=== PATIENT | male | born 1945 | race Caucasian/White ===

== ENCOUNTER → 2018-01-12 14:48 | Outpatient (CLI) | payer MEDICARE, OTHER, SELFPAY | PROVIDERS: Visit Provider Urology | DX: R97.20 Elevated prostate specific antigen [PSA] (principal) | CPT/HCPCS: 84153 ==

== ENCOUNTER → 2018-05-09 10:19 | Outpatient (CLI) | payer MEDICARE, OTHER, SELFPAY ==
[2018-05-09 11:21] LABS: Cholesterol 177 mg/dL (140-199); HDL Cholesterol 95 mg/dL (40-60); LDL Cholesterol Calculated 68 mg/dL (<100); Triglycerides 71 mg/dL (35-150)
[2018-05-09 11:54] LABS: Prostate Specific Antigen Scrn 3.93 ng/mL (0.1-4.0)
[2018-05-09 11:58] LABS: Thyroid Stimulating Hormone 1.99 uIU/mL (0.47-4.68)
== END ==
PROVIDERS: Family Provider Family Medicine; PCP Family Medicine; Visit Provider Family Medicine
DX: E03.9 Hypothyroidism, unspecified (principal); Z13.220 Encounter for screening for lipoid disorders; R97.20 Elevated prostate specific antigen [PSA]
CPT/HCPCS: 36415; 80061; 84443; G0103

== ENCOUNTER → 2019-03-20 13:32 | Outpatient (CLI) | payer MEDICARE, OTHER, SELFPAY ==
[2019-03-20 14:56] LABS: Free T3, Triiodothyronine Free 3.52 pg/mL (2.77-5.27); Free T4, Direct Thyroxine 1.27 ng/dL (0.78-2.19)
[2019-03-20 15:10] LABS: Thyroid Stimulating Hormone 3.22 uIU/mL (0.47-4.68)
[2019-03-20 15:11] LABS: Prostate Specific Antigen Scrn 3.29 ng/mL (0.1-4.0)
[2019-03-24 13:36] LABS: Thyroid Peroxidase Antibodies 16 IU/mL (< 9)
[2019-03-24 15:28] LABS: Triiodothyronine T3 Reverse 21 ng/dL (8-25)
== END ==
PROVIDERS: PCP Family Medicine; Visit Provider Family Medicine
DX: E03.9 Hypothyroidism, unspecified (principal); Z12.5 Encounter for screening for malignant neoplasm of prostate
CPT/HCPCS: 36415; 84439; 84443; 84481; 84482; 86376; G0103

== ENCOUNTER 2019-04-18 10:53 | Day surgery (SDC) | payer MEDICARE, OTHER, SELFPAY ==
[2019-04-18 11:10] VITALS: BP 124/72; PULSE 60; RESP 16; TEMP 36.4; O2SAT 97; BMI 24.8
[2019-04-18] MEDS: CATARACT EYE COMPOUND (10 DROPS/SYRINGE) 3 DROPS EYE-OP (11:39)
[2019-04-18] MEDS: PROPARACAINE 0.5% OPHTH SOL 2 DROPS EYE-OP (11:39)
--- NOTE | 2019-04-18 11:57 | PM.PREOP ---
Pre-operative Note Interval Note History & Physical reviewed/Exam performed by Physician: No Changes to H&P: No
--- NOTE | 2019-04-18 11:57 | PM.OP.1 ---
Operative Date/Time/Diagnoses Pre-op diagnosis: Nuclear cataract right eye Procedure & Clinicians Procedure: Cataract Surgery Same procedure as scheduled: Yes Surgeon: Victor Manuel Roa Anesthesia Type: MAC +/- and Sedation Operative Notes Procedure in detail: Patient brought to the operating suite. Tetracaine drops placed in the right eye. Marking instrument was used to bean the vertical and horizontal meridians. Patient was prepped and draped in sterile manner. Wire lid speculum was placed in the eye. Marking instrument was used to bean the 115 degree meridian. Betadine drops were placed on the eye. This was irrigated. Lidocaine jelly was placed on the eye. A paracentesis port was created with a side-port blade. 0.1 mL 1% preservative free lidocaine was injected into the anterior chamber. The anterior chamber was deepened with viscoelastic. 2.6 mm keratome was used to create a temporal clear corneal incision. Cystotome and Utrata forceps were used to create continuous tear capsulorrhexis. Balanced salt solution was used to hydro dissect the nucleus. The phacoemulsification handpiece was inserted and the nucleus was removed using the stop and chop technique. The irrigation aspiration handpiece was inserted and the remaining cortex was removed. Anterior chamber was deepened with viscoelastic. An Louis [id number] intraocular lens with a power of 22.5 was injected into the capsular bag. Irrigation aspiration handpiece was inserted and the remaining viscoelastic was removed. The lens was rotated to the 115 degree meridian. Incision was hydrated with balanced salt solution and found to be leak free with pressure with Weck-Marilia sponges. 0.1 mL Vigamox injected anterior chamber. 0.3 mL Kenalog 10 mg was injected subconjunctivally. Lid speculum was removed. The patient left the operating room in excellent condition. Complications: none Post-operative Condition: stable Disposition: same day surgery
[2019-04-18] MEDS: TRIAMCINOLONE 50 MG/5 ML VIAL INJ (12:14)
[2019-04-18] MEDS: MOXIFLOXACIN INJ 5 MG/ML VIAL EYE-OP (12:14)
[2019-04-18] MEDS: PHENYLEPHRINE/LIDOCAINE VIAL (OR) 0.2 ML EYE-OP (12:14)
[2019-04-18] MEDS: LIDOCAINE JELLY 2% 5 ML 1 APPLIC TOP (12:15)
[2019-04-18] MEDS: CHONDROIDTIN/SOD HYALURONATE 1.05 ML SYRINGE INTRAOCULA (12:15)
[2019-04-18] MEDS: TETRACAINE 0.5% OPHTH DROPS 4 ML 2 DROPS EYE-OP (12:15)
[2019-04-18] MEDS: BALANCED SALT IRRIG SOLN NO.2 500 ML, EPINEPHrine 1 MG IRR (12:15)
[2019-04-18 12:30] VITALS: BP 123/63; PULSE 57; RESP 15; TEMP 36.3; O2SAT 96
== END 2019-04-18 12:49 | disposition home or self-care (01) ==
PROVIDERS: PCP Family Medicine; Visit Provider Ophthalmology
PROC: (CPT 66984; principal; 2019-04-18 12:45)
DX: H25.11 Age-related nuclear cataract, right eye (principal)
CPT/HCPCS: 66984; J0171; J2250; J3010; J3301; V2787

== ENCOUNTER 2019-05-16 07:35 | Day surgery (SDC) | payer MEDICARE, OTHER, SELFPAY ==
[2019-05-16 08:14] VITALS: BP 134/75; PULSE 55; RESP 15; TEMP 36.6; O2SAT 98; BMI 25.0
[2019-05-16] MEDS: PROPARACAINE 0.5% OPHTH SOL 2 DROPS EYE-OP (08:14)
[2019-05-16] MEDS: CATARACT EYE COMPOUND (10 DROPS/SYRINGE) 3 DROPS EYE-OP (08:23)
--- NOTE | 2019-05-16 09:00 | PM.OP.1 ---
Operative Date/Time/Diagnoses Pre-op diagnosis: Nuclear Cataract Left eye Post-op diagnosis: same Procedure & Clinicians Surgeon: Victor Manuel Roa Anesthesia Type: MAC +/- and Sedation Operative Notes Procedure in detail: Patient brought to the operating suite. Tetracaine drops placed in the left eye. Marking instrument marked the vertical and horizontal meridians. Patient was prepped and draped in sterile manner. Wire lid speculum was placed in the eye. Marking instrument marked the 75 degree meridian. Betadine drops were placed on the eye. This was irrigated. Lidocaine jelly was placed on the eye. A paracentesis port was created with a side-port blade. 0.1 mL 1% preservative free lidocaine was injected into the anterior chamber. The anterior chamber was deepened with viscoelastic. 2.6 mm keratome was used to create a temporal clear corneal incision. Cystotome and Utrata forceps were used to create continuous tear capsulorrhexis. Balanced salt solution was used to hydro dissect the nucleus. The phacoemulsification handpiece was inserted and the nucleus was removed using the stop and chop technique. The irrigation aspiration handpiece was inserted and the remaining cortex was removed. Anterior chamber was deepened with viscoelastic. An Louis BEL900 intraocular lens with a power of 21.0 was injected into the capsular bag. Irrigation aspiration handpiece was inserted and the remaining viscoelastic was removed. The lens was rotated to the 75 degree meridian. Incision was hydrated with balanced salt solution and found to be leak free with pressure with Weck-Marilia sponges. 0.1 mL Vigamox injected anterior chamber. 0.3 mL Kenalog 10 mg was injected subconjunctivally. Lid speculum was removed. The patient left the operating room in excellent condition. Complications: none Post-operative Condition: stable Disposition: same day surgery
--- NOTE | 2019-05-16 09:03 | PM.PREOP ---
Pre-operative Note Interval Note History & Physical reviewed/Exam performed by Physician: No Changes to H&P: No
[2019-05-16] MEDS: MOXIFLOXACIN INJ 5 MG/ML VIAL EYE-OP (09:11)
[2019-05-16] MEDS: LIDOCAINE JELLY 2% 5 ML 1 APPLIC TOP (09:12)
[2019-05-16] MEDS: PHENYLEPHRINE/LIDOCAINE VIAL (OR) 0.2 ML EYE-OP (09:12)
[2019-05-16] MEDS: TRIAMCINOLONE 50 MG/5 ML VIAL INJ (09:12)
[2019-05-16] MEDS: BALANCED SALT IRRIG SOLN NO.2 500 ML, EPINEPHrine 1 MG IRR (09:12)
[2019-05-16] MEDS: TETRACAINE 0.5% OPHTH DROPS 4 ML 2 DROPS EYE-OP (09:13)
[2019-05-16] MEDS: CHONDROIDTIN/SOD HYALURONATE 1.05 ML SYRINGE INTRAOCULA (09:13)
[2019-05-16 09:30] VITALS: BP 103/66; PULSE 55; RESP 16; TEMP 36.4; O2SAT 94
== END 2019-05-16 09:38 | disposition home or self-care (01) ==
PROVIDERS: PCP Family Medicine; Visit Provider Ophthalmology
PROC: (CPT 66984; principal; 2019-05-16 09:15)
DX: H25.12 Age-related nuclear cataract, left eye (principal)
CPT/HCPCS: 66984; J0171; J2250; J3010; J3301; V2787

== ENCOUNTER → 2019-06-30 08:47 | Outpatient (CLI) | payer MEDICARE, OTHER, SELFPAY ==
[2019-06-30 10:30] LABS: Free T3, Triiodothyronine Free 3.21 pg/mL (2.77-5.27); Free T4, Direct Thyroxine 1.17 ng/dL (0.78-2.19)
[2019-06-30 10:44] LABS: Thyroid Stimulating Hormone 2.02 uIU/mL (0.47-4.68)
[2019-07-04 13:40] LABS: Anti Thyroglobulin Antibody < 1 IU/mL (< 2); Thyroid Peroxidase Antibodies 15 IU/mL (< 9)
[2019-07-05 15:24] LABS: Triiodothyronine T3 Reverse 18 ng/dL (8-25)
== END ==
PROVIDERS: PCP Family Medicine; Visit Provider Family Medicine
DX: E03.9 Hypothyroidism, unspecified (principal)
CPT/HCPCS: 36415; 84439; 84443; 84481; 84482; 86376; 86800

== ENCOUNTER 2019-08-10 06:29 | Day surgery (SDC) | payer MEDICARE, OTHER, SELFPAY ==
[2019-08-10] VITALS (7 sets, daily range): BP systolic 91–139; BP diastolic 53–74; PULSE 50–66; RESP 11–23; TEMP 35.9–36.6; O2SAT 93–96; BMI 24.7
--- NOTE | 2019-08-10 | PATH_ITS ---
[facility] Accession Number: [id number] . 01 Material submitted: . PART A: colon - POLYPS AT 65 CM PART B: colon - POLYP AT 15 CM . 02 Diagnosis: A. Polyps at 65 cm, Biopsies: Portions of tubular adenoma x4. Portions of sessile serrated adenoma x5. . B. Polyp at 15 cm: Serrated lesion, favor hyperplastic polyp. MRV 08/11/2019 1119 Local . 02 Electronically signed: . Radha Harris MD, Pathologist NPI- [id number] . 01 Gross description: . Part A: POLYPS AT 65 CM: Received in formalin are multiple fragment(s) of osei, soft tissue measuring 0.6 x 0.6 x 0.2 cm in aggregate submitted entirely in 1 cassette(s) Part B: POLYP AT 15 CM: Received in formalin is 1 fragment(s) of osei, soft tissue measuring 0.2 x 0.2 x 0.2 cm submitted entirely in 1 cassette(s) /QBJ 08/10/2019 2155 Local . 02 Pathologist provided ICD-10: K63.5, Z12.11 . 02 CPT . 863790, [id number] Performed at: 01 [facility] [address], [place], [place] [id number] MD Adonis Park MD Phone: [phone] Performed at: 02 [facility] [address] [place], [place] [id number] MD Flora Liu MD Phone: [phone]
[2019-08-10] MEDS: LACTATED RINGERS 1,000 ML 42 ML IV (07:30)
[2019-08-10] MEDS: MIDAZOLAM 5 MG/5 ML VIAL IV (07:48)
[2019-08-10] MEDS: fentaNYL 250 MCG/5 ML INJ IV (07:48)
--- NOTE | 2019-08-10 07:53 | PM.HP.1 ---
History of Present Illness History of Present Illness Date Patient Seen: 08/10/19 Time Patient Seen: 07:53 Chief complaint: 17045 Narrative: The patient is a gentleman here for his 1st colonoscopy. Screening Patient History Medical History Acute appendicitis (Inactive) Elevated PSA (Chronic) Family history of colon cancer (Acute) Family history of Lema syndrome (Acute) Mouth ulcers (Inactive) PMR (polymyalgia rheumatica) (Chronic) Postoperative cellulitis of surgical wound (Inactive) Surgical History History of appendectomy (Acute ~02/2017) History of cataract extraction with lens replacement (Acute ~01/2019) History of hernia surgery (Resolved) Family & Social History Family History Sister Eczema Carrier of gene for Lema syndrome Uterine cancer Mother Temporal arteritis Grandmother Colon cancer Social History: household members significant other lives independently Yes caregiver/support person No Tobacco & Substance use: Smoking Status Former smoker alcohol intake former Substance Use Type does not use Meds Home Medications and Allergies Home Medications Medication Instructions Recorded Confirmed Type ibuprofen 200 mg tablet 200 mg PO PRN PRN tab 10/21/18 08/10/19 History diphenhydramine HCl 25 mg capsule 50 mg PO BEDTIME cap 03/20/19 08/10/19 History folic acid 1 mg PO DAILY 05/16/19 08/10/19 History levothyroxine 100 mcg tablet 100 mcg PO QAM #90 tab 07/06/19 08/10/19 Rx naltrexone 4.5 mg PO DAILY 08/10/19 08/10/19 History Allergies Allergy/AdvReac Type Severity Reaction Status Date / Time acetaminophen AdvReac Intermediate DIAPHORETIC, Verified 08/10/19 07:11 LIGHTHEADED oxycodone [OXYCODONE] AdvReac Unknown vomiting Verified 08/10/19 07:11 msg AdvReac Intermediate cramping, Uncoded 07/03/19 09:59 diarrhea sulfites AdvReac Intermediate cramping,di Uncoded 07/03/19 09:59 arrhea Review of Systems Review of Systems ROS: Yes All systems reviewed with the patient and are negative except as otherwise documented Endocrine Comments: Hypothyroid on medication Exam Vital Signs (past 8 hours): - 08/10/19 07:18 Temperature 97.8 F Pulse Rate 66 Respiratory Rate 18 Blood Pressure 139/74 Pulse Oximetry 96 Oxygen Delivery Method Room Air Narrative Exam Narrative: Pleasant cooperative patient no apparent distress. Lungs are clear to auscultation. No rales or rhonchi. Heart regular rate and rhythm no murmur gallop. Abdomen is soft nontender without mass. No obvious hernias. Patient is alert and oriented x3. Assessment & Plan Assessment & Plan narrative: The patient for a screening colonoscopy. I have discussed the procedure with them. Risks of bleeding, perforation which would necessitate major operation, failure to find remove all lesions, the potential tattoo were all discussed. All questions were answered. They wished to proceed.
--- NOTE | 2019-08-10 07:54 | PM.PREOP ---
Pre-operative Note Interval Note History & Physical reviewed/Exam performed by Physician: Yes Changes to H&P: No ASA Class (for procedural sedation): I
--- NOTE | 2019-08-10 08:29 | PM.OP.ENDO ---
Operative Date/Time/Diagnoses Date of procedure: 08/10/19 Time of procedure: 08:29 Pre-op diagnosis: Screening exam. This is his 1st colonoscopy. Post-op diagnosis: same (Three small polyps. Sigmoid diverticulosis. Very large prostate without mass. small hemorrhoids at the anal verge) Procedure & Clinicians Study performed: Colonoscopy with cold biopsies Same procedure as scheduled: Yes Indications: Screening Surgeon: Ignacio Hanley Procedure Notes SCOAP/Timeout: Perform Procedure in detail: The patient was placed in the left lateral decubitus position and underwent IV sedation directed by the surgeon consisting of fentanyl and Versed. Digital exam was remarkable for a very large prostate without a dominant mass. The scope was inserted and advanced through the rectum into the sigmoid, descending, transverse, and ascending colon. Patient was noted to have sigmoid diverticulosis. He also had a polyp in the transverse colon which I biopsied and removed on the way in it was under a cm in size.. The cecum was reached identified by the ileocecal valve and the appendiceal opening. The ileocecal valve was not cannulated. The scope was gradually brought out. Two additional Polyps were found at about 60 cm where the 1st polyp was removed and at about 15 cm from the anal verge. The scope ultimately was retroflexed in the rectum. The appearance was normal. The scope was removed and the patient tolerated the procedure well. Coming through the anal canal I did note some hemorrhoids without ulceration. The prep was excellent Scope withdrawal time: 8 minutes(10 total) Sedation minutes: 25 Findings: diverticulosis, polyp (Three small polyps) and other findings (Large prostate) Specimen(s): other (Polyps) Complications: none Post-procedure Recommendations: Colonscopy in 5 years Follow up: as needed Disposition: PACU
[2019-08-10] MEDS: ONDANSETRON 4 MG/2 ML INJ IV (08:30)
== END 2019-08-10 09:45 | disposition home or self-care (01) ==
PROVIDERS: PCP Family Medicine; Referring Provider Specialist; Visit Provider Specialist
PROC: 0DJD8ZZ Inspection of Lower Intestinal Tract, Via Natural or Artificial Opening Endoscopic (ICD-10-PCS; CPT 45378; principal; 2019-08-10 07:45)
DX: Z12.11 Encounter for screening for malignant neoplasm of colon (principal); Z80.0 Family history of malignant neoplasm of digestive organs; Z15.09 Genetic susceptibility to other malignant neoplasm; K57.30 Diverticulosis of large intestine without perforation or abscess without bleeding; N40.0 Benign prostatic hyperplasia without lower urinary tract symptoms; K64.8 Other hemorrhoids; D12.6 Benign neoplasm of colon, unspecified
CPT/HCPCS: 45380; 99152; J2250; J2405; J3010

== ENCOUNTER → 2019-11-13 16:10 | Outpatient (CLI) | payer MEDICARE, OTHER, SELFPAY ==
--- NOTE | 2019-11-13 16:12 | DI.MRI.S_ITS ---
PROCEDURE: MR HEAD/BRAIN WO/W CON INDICATIONS: New onset of left sided headaches TECHNIQUE: Noncontrast axial T1 spin echo, axial T2 fast spin echo, sagittal and axial FLAIR, coronal T2 fast spin echo, axial gradient echo, axial diffusion and ADC through the brain. After the administration of contrast, axial and coronal 3D VIBE or T1 spin echo with fat saturation through the brain. COMPARISON: None. FINDINGS: Image quality: Excellent. CSF Spaces: Basal cisterns are patent. No extra-axial fluid collections. Ventricles are normal in size and shape. Brain: No midline shift. No intracranial bleeds or masses. No abnormal intracranial enhancement. The brainstem appears normal. Diffusion-weighted images demonstrate no acute ischemic insults. No chronic ischemic insults. Normal intravascular flow voids are present. Skull and face: Calvarial marrow is normal in signal. Orbits appear normal. Sinuses: Sinuses and mastoids appear clear. IMPRESSION: Mild microvascular atherosclerotic change in the deep white matter of each hemisphere but no sign of mass or stroke, or vascular abnormality seen. Source of new onset left-sided headache is not identified. Dictated by: Rajeev Hodgson M.D. on 11/13/2019 at 16:28 Approved by: Rajeev Hodgson M.D. on 11/13/2019 at 16:28
== END ==
PROVIDERS: PCP Family Medicine; Referring Provider Family Medicine; Visit Provider Family Medicine
DX: G43.109 Migraine with aura, not intractable, without status migrainosus (principal); M35.3 Polymyalgia rheumatica
CPT/HCPCS: 70553

== ENCOUNTER → 2019-12-06 07:35 | Outpatient (CLI) | payer MEDICARE, OTHER, SELFPAY ==
[2019-12-06 08:36] LABS: Free T3, Triiodothyronine Free 3.58 pg/mL (2.77-5.27); Free T4, Direct Thyroxine 1.27 ng/dL (0.78-2.19)
[2019-12-06 08:50] LABS: Thyroid Stimulating Hormone 3.66 uIU/mL (0.47-4.68)
[2019-12-06 09:42] LABS: Vitamin B12 288 pg/mL (239-931)
[2019-12-07 04:39] LABS: Homocysteine 13.1 umol/L (0.0-19.2)
[2019-12-07 06:10] LABS: Thyroid Peroxidase Antibodies 14 IU/mL (0-34)
[2019-12-07 20:36] LABS: Anti Thyroglobulin Antibody <1.0 IU/mL (0.0-0.9)
[2019-12-08 21:07] LABS: Methylmalonic Acid,Serum 320 nmol/L (0-378)
[2019-12-11 12:34] LABS: Triiodothyronine T3 Reverse 16.2 ng/dL (9.2-24.1)
== END ==
PROVIDERS: PCP Family Medicine; Referring Provider Family Medicine; Visit Provider Family Medicine
DX: E03.9 Hypothyroidism, unspecified (principal); E53.8 Deficiency of other specified B group vitamins
CPT/HCPCS: 36415; 82607; 83090; 83921; 84439; 84443; 84481; 84482; 86376; 86800

== ENCOUNTER → 2020-03-01 08:40 | Outpatient (CLI) | payer MEDICARE, OTHER, SELFPAY ==
[2020-03-01 10:19] LABS: Free T3, Triiodothyronine Free 4.45 pg/mL (2.77-5.27); Free T4, Direct Thyroxine 1.25 ng/dL (0.78-2.19)
== END ==
PROVIDERS: PCP Family Medicine; Referring Provider Family Medicine; Visit Provider Family Medicine
DX: E03.9 Hypothyroidism, unspecified (principal)
CPT/HCPCS: 36415; 84439; 84443; 84481

== ENCOUNTER → 2021-05-20 09:33 | Outpatient (CLI) | payer MEDICARE, SELFPAY ==
[2021-05-20 11:58] LABS: TSH w/ Reflex to FT4 1.94 uIU/mL (0.47-4.68)
== END ==
PROVIDERS: PCP Family Medicine; Referring Provider Family Medicine; Visit Provider Family Medicine
DX: E03.9 Hypothyroidism, unspecified (principal)
CPT/HCPCS: 36415; 84443

== ENCOUNTER → 2022-09-02 08:01 | Outpatient (CLI) | payer MEDICARE, OTHER, SELFPAY ==
[2022-09-02 08:31] LABS: Add Manual Diff / Slide Review NO; Basophils Absolute Auto 100 /uL (0-100); Basophils Percent Auto 0.9 % (0-2); Eosinophils Absolute Auto 400 /uL (0-450); Eosinophils Percent Auto 6.5 % (2-4); Hematocrit 45.8 % (41-53); Hemoglobin 15.2 g/dL (13.5-17.5); Lymphocytes Absolute Auto 2800 /uL (1100-4500); Lymphocytes Percent Auto 42.2 % (25-40); Mean Corpuscular HGB Conc 33.2 % (30-36); Mean Corpuscular Hemoglobin 29.1 PG (26-34); Mean Corpuscular Volume 87.7 fL (80-100); Monocytes Absolute Auto 600 /uL (0-900); Neutrophils Absolute Auto 2800 /uL (1500-7000); Neutrophils Percent Auto 41.4 % (50-75); Platelet Count 177 X10^3/uL (150-400); Red Blood Cell Count 5.22 X10^6/uL (4.5-5.9); Red Cell Distribution Width 15.3 % (11.6-14.8); White Blood Cell Count 6.7 X10^3/uL (4.5-11.0)
[2022-09-02 09:27] LABS: Blood Urea Nitrogen 19 mg/dL (9-20); Calcium 8.9 mg/dL (8.4-10.2); Carbon Dioxide 29 mmol/L (22-32); Chloride 103 mmol/L (98-107); Cholesterol 177 mg/dL (140-199); Estimated Glomerular Filt Rate > 60 mL/min (>60); Glucose 90 mg/dL (80-110); HDL Cholesterol 67 mg/dL (40-60); HEMOLYSIS < 15 (0-50); LDL Cholesterol Calculated 97 mg/dL (<100); Potassium 4.9 mmol/L (3.4-5.1); Sodium 138 mmol/L (137-145); Triglycerides 63 mg/dL (35-150)
[2022-09-02 09:57] LABS: Thyroid Stimulating Hormone 2.06 uIU/mL (0.47-4.68)
== END ==
PROVIDERS: PCP Family Medicine; Referring Provider Family Medicine; Visit Provider Family Medicine
DX: E03.9 Hypothyroidism, unspecified (principal); M32.9 Systemic lupus erythematosus, unspecified; Z13.220 Encounter for screening for lipoid disorders
CPT/HCPCS: 36415; 80048; 80061; 84439; 84443; 84481; 85025

== ENCOUNTER → 2022-09-07 16:53 | Outpatient (CLI) | payer MEDICARE, OTHER, SELFPAY ==
[2022-09-07 18:27] LABS: Erythrocyte Sedimentation Rate 2 MM/HR (0-15)
[2022-09-07 18:28] LABS: Alanine Aminotransferase 33 IU/L (<50); Albumin 4.5 g/dL (3.5-5.0); Albumin Globulin Ratio 1.5 (1.0-2.8); Alkaline Phosphatase 67 U/L (38-126); Aspartate Aminotransferase 30 IU/L (17-59); Bilirubin Direct 0.2 mg/dL (0.0-0.4); Bilirubin Total 0.7 mg/dL (0.2-1.3); Bilirubin Unconjugated 0.5 mg/dL (0.0-1.1); C-Reactive Protein Quant 0.5 mg/dL (<1.0); Globulin 3.1 g/dL (1.7-4.1); HEMOLYSIS < 15 (0-50); Total Protein 7.6 g/dL (6.3-8.2)
== END ==
PROVIDERS: PCP Family Medicine; Referring Provider Family Medicine; Visit Provider Family Medicine
DX: M32.9 Systemic lupus erythematosus, unspecified (principal); M35.3 Polymyalgia rheumatica
CPT/HCPCS: 36415; 80076; 82248; 85651; 86140

== ENCOUNTER 2022-11-24 13:37 | Day surgery (SDC) | payer MEDICARE, OTHER, SELFPAY ==
[2022-11-16 14:44] VITALS: BMI 26.1
[2022-11-24] VITALS (8 sets, daily range): BP systolic 83–143; BP diastolic 46–78; PULSE 45–60; RESP 11–16; TEMP 36.1–36.4; O2SAT 97–100; BMI 26.1
--- NOTE | 2022-11-24 13:49 | PM.PREOP ---
Pre-operative Note Interval Note History & Physical reviewed/Exam performed by Physician: Yes Changes to H&P: No H&P completed within 30 days and has changed as indicated here:: Discussed again the risks benefits and alternatives of operative repair. On exam the hernia defect is approximately 1 x 2 cm in size above the umbilicus underneath the scar from the previous repair. He understands risks including but not limited to bleeding infection more serious injury to intestines that could require further surgery to repair though this is rare it is possible and a known complication. He understands the above and would like to proceed.
[2022-11-24] MEDS: LACTATED RINGERS 1,000 ML 100 ML IV (14:08)
[2022-11-24] MEDS: CEFAZOLIN 2 GM/100 ML PREMIX 100 ML IV (14:45)
--- NOTE | 2022-11-24 15:03 | SUR.OPER ---
Supine on padded OR bed, head on pillow, arms secured on padded arm boards at <90 degrees abduction, legs uncrossed, safety belt at thigh, tape over blanket over lower legs.
--- NOTE | 2022-11-24 15:26 | P.OP_ITS ---
Operative Date/Time/Diagnoses Date of procedure: 11/24/22 Time of procedure: 15:26 Pre-op diagnosis: Recurrent epigastric/umbilical hernia Post-op diagnosis: same Procedure & Clinicians Procedure: Epigastric hernia repair with small Ventralex mesh Defect size 2 cm x 2 cm Same procedure as scheduled: Yes Indications: Please see H and P - this is a symptomatic recurrence. Surgeon: Fanny Sierra Rug Setter [place]: Aleks Marshall Anesthesia Type: MAC +/-, Sedation and Local (Bupivacaine with epinephrine) Operative Notes Findings: Patient was taken to the operating room and placed supine on the table. Bilateral SCDs were placed and a time-out was performed. The patient was sedated under monitored anesthetic care and the abdomen was prepped and draped in the usual sterile fashion. Local anesthesia was infused above the umbilicus. A 10. Blade scalpel was used to incise the skin overlying the palpable fascial defect. This was then carried through the subcutaneous tissue with a combinatio n of blunt dissection and electrocautery. The hernia sac was identified and dissected free. The fascial edges were then seen and grasped with 2 Roseanne retractors. The hernia defect was returned to the abdomen without entering the hernia sac. Some gentle blunt finger dissection was used to free the fascial edges in order to place the small size of Ventralex mesh into the defect. A 0 Prolene suture was then used to secure the straps of the mesh to the fascial edge. A final 0 Prolene interrupted suture was used to close the defect over the mesh in a superior inferior direction. Next the subcutaneous tissue was closed with interrupted 3-0 Vicryl and the skin was closed with 4-0 Monocryl. The skin was dressed with Steri-Strips and the patient went in good condition to the postoperative care unit there were no complications and the EBL was minimal. Specimen(s): none sent Complications: none Post-operative Disposition: PACU
== END 2022-11-24 16:22 | disposition home or self-care (01) ==
PROVIDERS: PCP Family Medicine; Referring Provider Surgery; Visit Provider Surgery
PROC: (CPT 49613; principal; 2022-11-24 15:00)
DX: K42.9 Umbilical hernia without obstruction or gangrene (principal)
CPT/HCPCS: 49613; J0690; J2405; J2704; J3010

== ENCOUNTER → 2023-08-20 17:06 | Outpatient (CLI) | payer MEDICARE, OTHER, SELFPAY | PROVIDERS: PCP Family Medicine; Referring Provider Family Medicine; Visit Provider Family Medicine | DX: E03.9 Hypothyroidism, unspecified (principal) | CPT/HCPCS: 36415; 84443 ==

== ENCOUNTER → 2023-10-21 12:00 | Outpatient (CLI) | payer MEDICARE, OTHER, SELFPAY ==
[2023-10-21 12:54] LABS: Add Manual Diff / Slide Review NO; Basophils Absolute Auto 100 /uL (0-100); Basophils Percent Auto 0.9 % (0-2); Eosinophils Absolute Auto 400 /uL (0-450); Eosinophils Percent Auto 6.7 % (2-4); Hematocrit 43.3 % (41-53); Hemoglobin 14.8 g/dL (13.5-17.5); Lymphocytes Absolute Auto 2000 /uL (1100-4500); Lymphocytes Percent Auto 30.6 % (25-40); Mean Corpuscular HGB Conc 34.1 % (30-36); Mean Corpuscular Hemoglobin 29.9 PG (26-34); Mean Corpuscular Volume 87.6 fL (80-100); Monocytes Absolute Auto 400 /uL (0-900); Monocytes Percent Auto 6.3 % (3-14); Neutrophils Absolute Auto 3700 /uL (1500-7000); Neutrophils Percent Auto 55.5 % (50-75); Platelet Count 191 X10^3/uL (150-400); Red Blood Cell Count 4.94 X10^6/uL (4.5-5.9); Red Cell Distribution Width 14.9 % (11.6-14.8); White Blood Cell Count 6.6 X10^3/uL (4.5-11.0)
[2023-10-21 13:14] LABS: Appearance Urine UA CLEAR; Bilirubin Urine UA NEGATIVE (NEGATIVE); Color Urine UA YELLOW; Glucose Urine UA NEGATIVE (Negative); Ketones Urine UA NEGATIVE (NEGATIVE); Leukocyte Esterase Urine UA NEGATIVE (NEGATIVE); Nitrite Urine UA NEGATIVE (Negative); Occult Blood Urine UA NEGATIVE (Negative); Protein Urine UA NEGATIVE (Negative); Urobilinogen Urine UA 0.2 E.U./dL (0.2); pH Urine UA 5.5 (4.5-8.0)
[2023-10-21 13:16] LABS: Erythrocyte Sedimentation Rate 3 MM/HR (0-15)
[2023-10-21 13:19] LABS: Alanine Aminotransferase 24 IU/L (<50); Albumin 4.6 g/dL (3.5-5.0); Albumin Globulin Ratio 1.5 (1.0-2.8); Alkaline Phosphatase 59 U/L (38-126); Aspartate Aminotransferase 31 IU/L (17-59); BUN Creatinine Ratio 23.1 (6-22); Bilirubin Total 0.8 mg/dL (0.2-1.3); Blood Urea Nitrogen 25 mg/dL (9-20); C-Reactive Protein Quant < 0.5 mg/dL (<1.0); Calcium 9.1 mg/dL (8.4-10.2); Carbon Dioxide 29 mmol/L (22-32); Chloride 105 mmol/L (98-107); Estimated Glomerular Filt Rate > 60 mL/min (>60); Glucose 103 mg/dL (80-110); HEMOLYSIS 22 (0-50); Potassium 4.4 mmol/L (3.4-5.1); Sodium 140 mmol/L (137-145); Total Protein 7.6 g/dL (6.3-8.2)
[2023-10-21 13:20] LABS: Bacteria Urine None Seen; Culture Indicated Urine Cult Not Indicated; RBC Urine None Seen (0-5/HPF); Rheumatoid Factor < 8.6 IU/mL (<12.0); Squamous Epithelial Cell Urine None Seen (0-5/HPF); Urine Volume 10mL (spun); WBC Urine None Seen (0-5/HPF)
[2023-10-22 08:13] LABS: Complement C3 109 mg/dL (82-167)
[2023-10-22 20:17] LABS: DNA (DS) Antibody 16 IU/mL (0-9)
== END ==
PROVIDERS: PCP Family Medicine; Referring Provider Internal Medicine Rheumatology; Visit Provider Internal Medicine Rheumatology
DX: R76.8 Other specified abnormal immunological findings in serum (principal); M35.3 Polymyalgia rheumatica; M79.10 Myalgia, unspecified site
CPT/HCPCS: 80053; 81001; 85025; 85651; 86140; 86160; 86200; 86225; 86430

== ENCOUNTER 2024-03-16 18:47 | Emergency (ER) | payer MEDICARE, OTHER, SELFPAY ==
[2024-03-16 19:14] VITALS: BP 134/65; PULSE 65; RESP 19; TEMP 36.4; O2SAT 97; BMI 25.0
--- NOTE | 2024-03-16 19:20 | DI.RAD.S_ITS ---
PROCEDURE: XR SHOULDER RT MIN 2V INDICATIONS: fall TECHNIQUE: 3 views of the shoulder were acquired. COMPARISON: Prior comparison could not be loaded FINDINGS: Acute, comminuted and impacted fracture of the right proximal humeral surgical neck with involvement of the greater and lesser tuberosities. No dislocation. The visualized right hemithorax is within normal limits. Mild acromioclavicular osteoarthritis. IMPRESSION: Acute, comminuted, and impacted right proximal humeral surgical neck fracture with extension to the tuberosities. Dictated by: Luis Concepcion M.D. on 03/16/2024 at 21:07 Approved by: Luis Concepcion M.D. on 03/16/2024 at 21:10
--- NOTE | 2024-03-16 22:33 | ED_ITS ---
HPI - Extremity Injury (Upper) General Chief Complaint: Extremity Injury, Upper Stated Complaint: GLF, injured rt shoulder Time Seen by Provider: 03/16/24 22:32 Source: patient Mode of arrival: Family Vehicle Limitations: no limitations Related Data Previous Rx's Medication Instructions Recorded levothyroxine 112 mcg tablet See Rx Instructions .Route 12/27/23 .COMPLEX #90 tabs Allergies Allergy/AdvReac Type Severity Reaction Status Date / Time methotrexate AdvReac Severe Mouth Verified 03/16/24 19:25 sores acetaminophen AdvReac Intermediate DIAPHORETIC, Verified 03/16/24 19:25 LIGHTHEADED oxycodone [OXYCODONE] AdvReac Intermediate vomiting Verified 03/16/24 19:25 sulfite AdvReac Intermediate diarrhea, Verified 03/16/24 19:25 cramping msg AdvReac Intermediate cramping, Uncoded 03/16/24 19:25 diarrhea Review of Systems Review of Systems ROS Unobtainable: All systems reviewed & are unremarkable except as noted in HPI and below Patient History Medical History Carri's thyroiditis History of COVID-19 Recurrent abdominal hernia Abscess of buccal space of mouth Diverticulosis, sigmoid Itching Family history of Lema syndrome Family history of colon cancer Steroid long-term use Mouth ulcers Elevated PSA PMR (polymyalgia rheumatica) Postoperative cellulitis of surgical wound Acute appendicitis Surgical History History of cataract extraction with lens replacement (~01/2019) History of appendectomy (~02/2017) History of hernia surgery Family History Sister Eczema Carrier of gene for Lema syndrome Uterine cancer Mother Temporal arteritis Grandmother Colon cancer Social History marital status: number of children: 2 household members: significant other lives independently: Yes caregiver/support person: No housing: house Smoking Status: Former smoker Tobacco: How many years used: 14 second hand exposure: No alcohol intake: former substance use type: does not use Smoking Status: Former smoker tobacco type: cigarettes alcohol intake frequency: 0-2 drinks per day Substance Use Type: does not use Exam Initial Vital Signs Initial Vital Signs: Vital Signs Temperature 97.6 F 03/16/24 19:14 Pulse Rate 65 03/16/24 19:14 Respiratory Rate 19 03/16/24 19:14 Blood Pressure 134/65 03/16/24 19:14 Pulse Oximetry 97 03/16/24 19:14 Oxygen Delivery Method Room Air 03/16/24 19:14 Course Orders Ordered: ED Orders 03/16/24 19:20 XR shoulder RT min 2V Stat Vital Signs Vital signs: Vital Signs - 8 hr 03/16/24 19:14 Temperature 97.6 F Pulse Rate 65 Respiratory Rate 19 Blood Pressure 134/65 Pulse Oximetry 97 Oxygen Delivery Method Room Air MDM - Extremity Injury (Upper) Imaging Data Extremity x-ray #1: Radiologist's Impression: Close Shoulder X-Ray (Signed) Luis Concepcion - 03/16/24 Brain MRI (Signed) Rajeev Hodgson - 11/13/19 Telemetry Strips 08/10/19 Bladder Scan 03/16/16 [place] [address] XRay Report Signed Patient: Ryne Young MR#: [id number] : 1945 Acct:[id number] Age/Sex: 78 / M Date of Service: 03/16/24 Loc: ED Accession Number: [id number] Procedure: XR shoulder RT min 2V Ordering Provider: Nita Quigley D.O. PROCEDURE: XR SHOULDER RT MIN 2V INDICATIONS: fall TECHNIQUE: 3 views of the shoulder were acquired. COMPARISON: Prior comparison could not be loaded FINDINGS: Acute, comminuted and impacted fracture of the right proximal humeral surgical neck with involvement of the greater and lesser tuberosities. No dislocation. The visualized right hemithorax is within normal limits. Mild acromioclavicular osteoarthritis. IMPRESSION: Acute, comminuted, and impacted right proximal humeral surgical neck fracture with extension to the tuberosities. Dictated by: Luis Concepcion M.D. on 03/16/2024 at 21:07 Approved by: Luis Concepcion M.D. on 03/16/2024 at 21:10 MDM Narrative Medical decision making narrative: 78-year-old male left without being seen has a acute comminuted impacted right proximal humeral surgical neck fracture with extension since tuberosities. Patient did receive a sling prior to leaving. Staff has been reaching out to patient to have him return for evaluation and treatment. Speak with Dr. Nath, orthopedic surgery; sling, follow up with Orthopedic surgery. Spoke with patient on the phone, no numbness or tingling of his extremity. States he just slipped and fallen grass, denies hitting his head or any loss of consciousness or other injuries. Was encouraged to return for full evaluation states he will return tomorrow. Did recommend that he have a sling. Interviewed his x-ray findings today. Patient states he has a leave as his neighbor is older and could not stay. Patient states pain is well-controlled at home currently. He will return in the morning for evaluation and sling. Did discuss that he will need to follow up with the orthopedic surgery. Discharge Plan Departure Patient Disposition: Left Without Being Seen Clinical Impression: Fracture of neck of humerus Prescriptions: No Action levothyroxine 112 mcg tablet See Rx Instructions .ROUTE .COMPLEX Qty: 90 3RF Dose Instruction: TAKE 1 TABLET DAILY Rx Instructions: TAKE 1 TABLET DAILY
--- NOTE | 2024-03-16 22:42 | PC.NURSE ---
Able to reach the pt by phone to inform of fracture. Pt reports he had to leave due to his ride needing to go home. Pt/partner cannot drive at night. Provider able to talk with pt on phone to inform of follow up needed.
--- NOTE | 2024-03-17 11:30 | PC.NURSE ---
Patient returned and was fit for a sling. Provided papers left by retail shift manager RN. No further questions upon discharge, instructed to follow up with orthopedics.
== END 2024-03-16 22:32 | disposition left against medical advice (07) ==
PROVIDERS: Emergency Provider Emergency Medicine; PCP Family Medicine
DX: S42.211A Unspecified displaced fracture of surgical neck of right humerus, initial encounter for closed fracture (principal); W19.XXXA Unspecified fall, initial encounter
CPT/HCPCS: 73030; 99281

== ENCOUNTER → 2025-05-29 09:02 | Outpatient (CLI) | payer MEDICARE, OTHER, SELFPAY ==
[2025-05-29 11:00] LABS: Alanine Aminotransferase 24 IU/L (<50); Albumin 4.7 g/dL (3.5-5.0); Albumin Globulin Ratio 1.7 (1.0-2.8); Alkaline Phosphatase 58 U/L (38-126); Blood Urea Nitrogen 20 mg/dL (9-20); Calcium 9.6 mg/dL (8.4-10.2); Carbon Dioxide 28 mmol/L (22-32); Chloride 105 mmol/L (98-107); Cholesterol 211 mg/dL (140-199); Estimated Glomerular Filt Rate > 60 mL/min (>60); Globulin 2.7 g/dL (1.7-4.1); Glucose 99 mg/dL (70-99); HDL Cholesterol 72 mg/dL (40-60); HEMOLYSIS < 15 (0-50); Potassium 5.1 mmol/L (3.4-5.1); Sodium 140 mmol/L (137-145); Total Protein 7.4 g/dL (6.3-8.2); Triglycerides 85 mg/dL (35-150)
[2025-05-29 11:30] LABS: TSH w/ Reflex to FT4 0.71 uIU/mL (0.47-4.68)
[2025-05-30 07:09] LABS: CRP, High Sensitivity 0.77 mg/L (0.00-3.00)
== END ==
PROVIDERS: PCP Family Medicine; Referring Provider Family Medicine; Visit Provider Family Medicine
DX: E03.8 Other specified hypothyroidism (principal); Z91.89 Other specified personal risk factors, not elsewhere classified; E06.3 Autoimmune thyroiditis
CPT/HCPCS: 36415; 80053; 80061; 84443; 86140